=== PATIENT | male | born 1945 | race Caucasian/White ===

== ENCOUNTER → 2020-03-20 15:50 | Outpatient (CLI) | payer MEDICARE, BC, SELFPAY ==
--- NOTE | 2020-03-20 | LES_PTH ---
PATIENT: MAURA VALENZUELA LOC: [facility] U#:[id number] AGE/SX: 80/M ROOM: RE03/20/[address]: Dr. Mazin Green MD : 1945 BED: DIS: SPEC #: [id number] RECD: 03/20/20 15:48 STATUS: JASON MONTANOJose Armando #: [id number] DELORES: 03/20/20 00:[address]: Mazin Green DEPT: SURGICAL PATHOLOGY RECD BY: Kehinde Randolph Tissues: Skin of head, NOS Procedures: Surgery Specimen Level IV HEADER OPERATION: Face lesion removal PRE-OP DIAGNOSIS: Lesion skin face, cellulitis TISSUE SUBMITTED: Right christian area MICROSCOPIC DIAGNOSIS Right christian area lesion, punch biopsy: Basal cell carcinoma. JOCELYN:zoran 03/22/20 COMMENT Case has been reviewed in consultation with Dr. Gaytan who concurs with the above diagnosis. IDC:AM MICROSCOPIC DESCRIPTION Slides are reviewed. GROSS DESCRIPTION Received in fixative is one container labeled with the patient's name and designated right christian area lesion. The specimen consists of a punch biopsy of cedillo-white skin measuring 0.4 cm in diameter and 0.3 cm in length. The entire specimen is submitted in one cassette. / SJ:rg 03/21/20 TC:0 CPT: 81927
== END ==
PROVIDERS: Referring Provider Otolaryngology; Visit Provider Otolaryngology
DX: C44.319 Basal cell carcinoma of skin of other parts of face (principal)
CPT/HCPCS: 88305

== ENCOUNTER 2020-04-07 07:00 | Day surgery (SDC) | payer MEDICARE, BC, SELFPAY ==
[2020-04-07] VITALS (7 sets, daily range): BP systolic 124–140; BP diastolic 68–79; PULSE 57–63; RESP 16; TEMP 36.4–36.7; O2SAT 98–100; BMI 24.0
--- NOTE | 2020-04-07 | LES_PTH ---
PATIENT: MAURA VALENZUELA [place] [facility] [place][id number] AGE/SX: 74/M ROOM: RE04/07/[address]: Dr. Mazin Green MD : 1945 BED: DIS: 04/07/2020 SPEC #: [id number] RECD: 04/07/20 09:31 STATUS: JASON SANDHYA #: [id number] DELORES: 04/07/20 00:[address]: Mazin Green DEPT: SURGICAL PATHOLOGY RECD BY: Traci Fang Tissues: A - Skin of face, NOS B - Skin of face, NOS Procedures: Frozen Section (charge) Frozen Section Add'l ([facility]) Surgery Specimen Level IV HEADER OPERATION: Excision lesion voodoo PRE-OP DIAGNOSIS: Lesion right and left voodoo, BCC TISSUE SUBMITTED: A - Lesion right voodoo, BCC right voodoo sent at 0928, FS, B - Lesion left voodoo, BCC left voodoo sent at 0953, FS FROZEN SECTION DIAGNOSIS A. Lesion right voodoo, BCC right voodoo, biopsy: Basal cell carcinoma, completely excised. B. Lesion left voodoo, biopsy: Actinic keratosis with moderate atypia. Cutaneous horn. Negative for carcinoma. JOCELYN:zoran 04/07/20 MICROSCOPIC DIAGNOSIS A. Lesion right voodoo, excisional biopsy: Basal cell carcinoma, completely excised (0.8 cm in greatest dimension). Mild actinic keratosis and solar elastosis. B. Lesion left voodoo, excisional biopsy: Consistent with cutaneous horn. Actinic keratosis with moderate atypia and solar elastosis. Negative for carcinoma. JOCELYN:zoran 04/10/20 MICROSCOPIC DESCRIPTION Slides are reviewed. GROSS DESCRIPTION A - Received fresh for frozen section diagnosis labeled with the patient's name is a specimen designated lesion right voodoo, basal cell carcinoma right voodoo. The specimen consists of a cedillo-white skin ellipse measuring 3.5 x 1.2 x 0.5 cm. A focal area of ulceration is noted measuring 0.7 x 0.7 cm. The specimen is oriented by a suture at posterior margin. The specimen is inked as follows: anterior - black, posterior??blue. The specimen is serially sectioned and submitted entirely for frozen section diagnosis in?three cassettes as follows: 1 - tips, 2 & 3 - rest of the specimen. B - Received fresh for frozen section diagnosis labeled with the patient's name is a specimen designated lesion left voodoo. The specimen consists of a piece of cedillo-white skin ellipse measuring 1.2 x 0.7 x 0.3 cm. The specimen is inked, serially sectioned and submitted entirely for frozen section diagnosis in one cassette. / SJ:rg 04/07/20 TC:0 CPT: 71388 x2, 59671 x2, 14101 x2
[2020-04-07] MEDS: Lactated Ringers 1,000 ML 75 ML IV (08:29)
[2020-04-07] MEDS: Bacitracin 500 UNITS/GM PACKET (09:30)
--- NOTE | 2020-04-07 10:06 | PCM.OPRPT ---
Problem List (1) Basal cell carcinoma of skin of other parts of face Status: Chronic (2) Cellulitis, face Status: Chronic (3) Benign skin lesion of face Status: Chronic Report of Operation Date of Procedure: 04/07/20 Pre-Operative Diagnosis: Basal cell carcinoma right confucianism, suspicious lesion left confucianism Post-Operative Diagnosis: Same Surgery/Procedure Performed:: Excision of basal cell carcinoma right confucianism 2 x 4 cm, excision of left confucianism lesion 0.8 x 1.5 cm Description of Surgical Findings:: Manuel is a 74-year-old male with a nonhealing lesion of the right confucianism. This is been biopsied which revealed a basal cell carcinoma. Broad excision with reconstruction was advised. Additionally he had an exophytic nonhealing lesion of the left confucianism and excision of the same setting was offered for treatment and evaluation. The risks of coronavirus exposure in this time period was discussed and he is agreeable to proceed except these risks and return for treatment of his nonhealing lesions. The risks, alternatives, potential complications, and benefits were discussed at length and any questions answered to the patient and/or caregiver's satisfaction. Witnessed informed consent was obtained in the office, and the patient and/or caregiver was agreeable to proceed. Procedure went as follows: The patient was identified in the preoperative holding brought to the operating room he was placed under conscious sedation. The skin was then prepped and draped in usual sterile fashion. The right confucianism lesion which had been marked preoperatively was then injected with 1% lidocaine with 100,000 epinephrine for a total of 2 mL. After allowing for vasoconstriction, an elliptical incision encompassing the lesion with margins was then incised with a 15 blade scalpel 2 x 4 cm in size. This was then sharply dissected removing a portion of the temporalis musculature and the temporal artery as the lesion extended deeply into the surrounding tissues to ensure complete excision of the deeper margins. The temporalis artery and vein were individually ligated with 3-0 silk suture for hemostasis and the wound bed cauterized with bipolar cautery for hemostasis. The skin was then widely undermined over the anterior auricle and tragus as well as the confucianism to allow for a tension-free closure. The wound was then closed deeply with interrupted 4-0 Vicryl suture. A running 5-0 Monocryl subcutaneous suture was then placed to close the skin. This completed excision of the right confucianism lesion. Frozen section evaluation confirmed a large basal cell carcinoma with margins free from involvement of disease. The left confucianism lesion was then injected with 1% lidocaine with 100,000 epinephrine for a total of 0.5 mL. This was then incised sharply and an ellipse with a 15 blade scalpel 1.5 x 0.8 cm and sharply undermined with an iris scissor and sent for pathologic specimen. The wound was then closed with interrupted 5-0 Monocryl sutures after cauterization of the base with bipolar cautery for hemostasis. Frozen section showed solar changes but no malignancy. The patient was then returned to anesthesia, revived, and returned to recovery having tolerated the procedure well. Type of Anesthesia:: MAC Anesthesiologist: anoop Special Medications: none Specimen's removed: facial skin lesions Drains: none Estimated Blood Loss (mL): 0 mL Fluids Replaced: 1000 mL Grafts/Implants Used: none - Complications none - Admit VTE Documentation VTE Present on Admission: No VTE Mechan Device Prophylaxis: SCD's VTE Pharm Prophylaxis ordered?: No
--- NOTE | 2020-04-07 10:17 | DCINST_ITS ---
- Discharge Diagnoses Current Active Problems: Current Active and Chronic Problems Basal cell carcinoma of skin of other parts of face (Chronic) Cellulitis, face (Chronic) Benign skin lesion of face (Chronic) You will use the following diet at home:: No restrictions Discharge Activity: Return to Normal Activity Call your doctor if your incision/area has: Sudden Increased Bleeding, Increased Pain/ Swelling, Swelling at the incision site Call your doctor if you observe: Fever of 101 or Higher Allergies/Adverse Reactions: Allergies No Known Allergies Allergy (Verified 04/07/20 07:20) Medications to take at Discharge Oxybutynin Chloride [Oxybutynin Chloride ER] 15 mg PO BID 04/07/20 RX: Atorvastatin Calcium [Lipitor] 40 mg PO DAILY 04/07/20 RX: Clonazepam 0.5 mg PO TID 04/07/20 RX: Escitalopram Oxalate 10 mg PO DAILY 04/07/20 RX: Propranolol HCl 40 mg PO TID 04/07/20 Primary Care Physician: MINDA DORSEY [Other] Test Results: Test results from this visit will be discussed in further detail at your follow- up appointment, if applicable. Please Follow Up With: Mazin Green MD When: 2 weeks
== END 2020-04-07 11:24 | disposition home or self-care (01) ==
LOC: SDC 07:02 → AC 07:03
PROVIDERS: Anesthesiology; Referring Provider Otolaryngology; Visit Provider Otolaryngology
PROC: (CPT 11646; principal; 2020-04-07 08:45)
DX: C44.319 Basal cell carcinoma of skin of other parts of face (principal); L57.0 Actinic keratosis; L57.8 Other skin changes due to chronic exposure to nonionizing radiation; L85.8 Other specified epidermal thickening; L03.211 Cellulitis of face
CPT/HCPCS: 00300; 11646; 87635; 88305; 88331; 88332; 94799; J7120; U0003